=== PATIENT | male | born 1995 | race Caucasian/White ===

== ENCOUNTER 2018-10-25 15:21 | Emergency (ER) | payer BC ==
--- NOTE | 2018-10-25 15:29 | PDOC ---
Rapid Medical Evaluation Time Seen by Provider: 10/25/18 15:28 Medical Evaluation: 10/25/18 15:28 HPI: R testicle pain x1 day PE deferred ORDERS, US and UA and Cx Discharge Disposition - Diagnosis Testicle pain - Referrals - Patient Instructions - Post Discharge Activity
[2018-10-25 15:36] VITALS: BP 151/83; PULSE 87; TEMP 98.5; BMI 35.4
--- NOTE | 2018-10-25 16:51 | PDOC ---
History of Present Illness - General Chief Complaint: Pain Stated Complaint: TESTICULAR PAIN Time Seen by Provider: 10/25/18 15:28 History Source: Patient Exam Limitations: Clinical Condition - History of Present Illness Initial Comments: 10/25/18 16:45 Patient with no significant past medical history present with complaint of sudden onset of scrotal swelling and right testicular pain since this morning. Patient denies any urinary frequency or dysuria. Patient denies nausea, vomiting. Denies pain or discharge. 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 Denies any trauma or injury to scrotal pelvic area. Denies any other symptoms Timing/Duration: 4-6 hours Past History - Past Medical History Allergies/Adverse Reactions: Allergies Allergy/AdvReac Type Severity Reaction Status Date / Time No Known Allergies Allergy Verified 10/25/18 15:28 Home Medications: Ambulatory Orders Ibuprofen 800 mg PO Q8H PRN #20 tablet 10/25/18 CVA: No COPD: No CHF: No DVT: No - Immunization History Immunization Up to Date: Yes - Suicide/Smoking/Psychosocial Hx Smoking History: Never smoked Information on smoking cessation initiated: No Hx Alcohol Use: No Drug/Substance Use Hx: No Review of Systems - Review of Systems Able to Perform ROS?: Yes Is the patient limited [place]i proficient: No Constitutional: No: Chills, Fever, Malaise HEENTM: No: Symptoms Reported Respiratory: No: Symptoms reported Cardiac (ROS): No: Symptoms Reported ABD/GI: No: Symptoms Reported, See HPI, Constipated, Diarrhea, Abdominal cramping : Yes: Symptoms Reported, See HPI, Testicular Swelling, Testicular Pain. No: Burning, Dysuria, Discharge, Frequency, Urgency, Testicular Mass, Lesions Integumentary: No: Rash Neurological: No: Tingling All Other Systems: Reviewed and Negative *Physical Exam - Vital Signs Last Vital Signs Temp Pulse Resp BP Pulse Ox 98.5 F 87 16 151/83 98 10/25/18 15:30 10/25/18 15:30 10/25/18 15:30 10/25/18 15:30 10/25/18 15:30 - Physical Exam Comments: 10/25/18 16:50 GENERAL: Well developed, well nourished. Awake and alert. No acute distress. NECK: Supple. Full ROM. CARDIOVASCULAR: Regular rate and rhythm. No murmurs, rubs, or gallops. PULMONARY: No evidence of respiratory distress. Lungs clear to auscultation bilaterally. No wheezing, rales or rhonchi. ABDOMINAL: Soft. Non-tender. Non-distended. No rebound or guarding. No organomegaly. Normoactive bowel sounds. MUSCULOSKELETAL Normal range of motion at all joints. : mild swelling to scrotum with moderate TTP over right testicle. no evidence of torsion on exam. no skin erythema. no penile discharge. negative hernia on exam SKIN: Warm and dry. Normal capillary refill. No rashes. . NEUROLOGICAL: Alert, awake, appropriate. Gait is normal without ataxia. PSYCHIATRIC: Cooperative. Good eye contact. Appropriate mood General Appearance: Yes: Nourished, Appropriately Dressed. No: Apparent Distress Medical Decision Making - Medical Decision Making 10/25/18 16:46 Patient with no significant past medical history present with complaint of sudden onset of scrotal swelling and right testicular pain since this morning. Patient denies any urinary frequency or dysuria. Patient denies nausea, vomiting. Denies pain or discharge. 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 Denies any trauma or injury to scrotal pelvic area. Denies any other symptoms Exam significant for mild scrotal swelling with moderate right testicular pain. no erythema to scrotum. no penile discharge. no abd pain on exam. Symptoms likely epididymitis vs hydrocele vs less likely testicular torsion UA, UCx and urine GC/CT testing ordered. scrotal US ordered. reassess after US 10/25/18 18:14 scrotal US shows trace fluid in scrotum otherwise normal US. no torsion or hydrocele seen on US. Patient report not sexually active for many months now and has low suspicion for STI. symptoms could be from torsion which has self untorsed vs urine infection. urine lab still pending 10/25/18 19:23 UA unremarkable. Patient still report persistent pain after 30mg Toradol. morphine 2mg IM ordered for pain. Given no evidence of testicular torsion now on exam with only mild scrotal swelling and normal testicular ultrasound which shows normal flow in testes, Patient will be discharge on motrin prn for pain with urology follow-up . Patient advised to come back to ED here or nearest emergency room if pain is persistently worsening pain. *DC/Admit/Observation/Transfer Diagnosis at time of Disposition: Testicle pain - Discharge Dispostion Disposition: HOME Condition at time of disposition: Stable Decision to Admit order: No - Prescriptions Prescriptions: Ibuprofen 800 mg PO Q8H PRN #20 tablet PRN Reason: pain - Referrals Referrals: Bennie Fox MD [Staff Physician] - - Patient Instructions Printed Discharge Instructions: How to Perform a Testicular Self-exam, DI for Testicular Pain Additional Instructions: Your ultrasound shows no testicular torsion now but does not mean you did not have torsion before which has fixed itself. Your urine was normal. Go straight to ED if worsening testicular pain or worsening swelling. Follow-up with referred urologist or urology close to your house - Post Discharge Activity
[2018-10-25] MEDS ORDERED: KETOROLAC TROMETHAMINE 30 MG/1 ML VIAL IM ONE (17:22)
--- NOTE | 2018-10-25 17:54 | PDOC ---
*Physical Exam - Vital Signs Last Vital Signs Temp Pulse Resp BP Pulse Ox 98.5 F 87 16 151/83 98 10/25/18 15:30 10/25/18 15:30 10/25/18 15:30 10/25/18 15:30 10/25/18 15:30 - Physical Exam Comments: 10/25/18 17:54 The patient was examined by [SETH Holland] under my direct supervision. I personally evaluated the patient. I concur with the above findings and the plan of care. *DC/Admit/Observation/Transfer Diagnosis at time of Disposition: Testicle pain - Referrals - Patient Instructions - Post Discharge Activity
[2018-10-25] MEDS ORDERED: KETOROLAC TROMETHAMINE 30 MG/1 ML VIAL ONE (17:57)
[2018-10-25 18:00] LABS: PH,URINE 8.5 (5.0-8.0); URINE APPEARANCE CLEAR; URINE BILIRUBIN NEGATIVE (NEGATIVE); URINE COLOR YELLOW; URINE GLUCOSE (UA) NEGATIVE (NEGATIVE); URINE KETONE NEGATIVE (NEGATIVE); URINE LEUK ESTERASE NEGATIVE (NEGATIVE); URINE NITRITE NEGATIVE (NEGATIVE); URINE PROTEIN NEGATIVE (NEGATIVE); URINE UROBILINOGEN 0.2 mg/dL (0.2-1.0)
[2018-10-25] MEDS ORDERED: morphine CARPU-JECT 2 MG/1 ML DISP.SYRIN IM ONE (19:09)
[2018-10-25] MEDS ORDERED: morphine SULFATE 4 MG/ML VIAL ONE (19:17)
== END 2018-10-25 19:33 | disposition home or self-care (01) ==
LOC: JER 15:21
PROC: 3E0233Z Introduction of Anti-inflammatory into Muscle, Percutaneous Approach (ICD-10-PCS; principal; 2018-10-25)
PROC: 3E023NZ Introduction of Analgesics, Hypnotics, Sedatives into Muscle, Percutaneous Approach (ICD-10-PCS; 2018-10-25)
DX: N50.811 Right testicular pain (principal)
CPT/HCPCS: 36415; 76870-TC; 81003; 87086; 87186; 87491; 87591; 99282-25